=== PATIENT | male | born 1960 | race Caucasian/White ===

== ENCOUNTER 2017-04-14 17:55 | Emergency (ER) | payer BC ==
[2017-04-14 18:21] VITALS: RESP 18; BMI 25.1
--- NOTE | 2017-04-14 18:32 | ED PDOC ---
Arrival/HPI - General Chief Complaint: Cough, Cold, Congestion Time Seen by Provider: 04/14/17 18:32 Historian: Patient - History of Present Illness Narrative History of Present Illness (Text): 04/14/17 18:32 This 56 yo male with pmh HTN, presents to this ED c/o influenza like symptoms since last night. Patient stated he had fever, cough, myalgias since last night. Patient has been taking Ibuprofen for fever as needed. Patient stated girlfriend with similar symptoms. Patient denies sob, cp, hemoptysis, abdominal pain, urinary symptoms, skin rash, recent travel, dizziness, or abnormal gait. Time/Duration: Other (see hpi) Context: Home Past Medical History - Provider Review Nursing Documentation Reviewed: Yes - Infectious Disease Hx of Infectious Diseases: None - Cardiac Hx Hypertension: Yes - Psychiatric Hx Substance Use: No - Anesthesia Hx Anesthesia: No Family/Social History - Physician Review Nursing Documentation Reviewed: Yes Family/Social History: Other (noncontributory) Smoking Status: Never Smoked Hx Alcohol Use: Yes Frequency of alcohol use: Socially Hx Substance Use: No Allergies/Home Meds Allergies/Adverse Reactions: Allergies No Known Allergies Allergy (Verified 04/14/17 18:13) Home Medications: Home Meds Medication Instructions Recorded Confirmed Enalapril Maleate [Vasotec] 12.5 mg PO DAILY 04/14/17 04/14/17 Ibuprofen [Motrin Tab] 800 mg PO DAILY 04/14/17 04/14/17 Review of Systems - Review of Systems Constitutional: Fevers. absent: Fatigue, Weight Change Eyes: Normal ENT: Sore Throat Respiratory: Cough. absent: SOB, Sputum, Wheezing Cardiovascular: Normal. absent: Chest Pain Gastrointestinal: Normal. absent: Abdominal Pain, Nausea, Vomiting Genitourinary Male: Normal. absent: Dysuria, Frequency, Hematuria Musculoskeletal: Normal. absent: Back Pain, Neck Pain Skin: Normal. absent: Rash Neurological: Normal. absent: Headache, Dizziness, Focal Weakness, Gait Changes , Speech Changes, Facial Droop, Disequilibrium, Seizure Endocrine: Normal Hemo/Lymphatic: Normal Psychiatric: Normal Physical Exam Vital Signs Temp Pulse Resp BP Pulse Ox 04/14/17 18:16 99.3 F 93 H 18 127/79 95 Temperature: Afebrile Blood Pressure: Normal Pulse: Regular Respiratory Rate: Normal Appearance: Positive for: Well-Appearing, Non-Toxic, Comfortable Pain Distress: None Mental Status: Positive for: Alert and Oriented X 3 - Systems Exam Head: Present: Atraumatic, Normocephalic Pupils: Present: PERRL Extroacular Muscles: Present: EOMI Conjunctiva: Present: Normal Mouth: Present: Moist Mucous Membranes Neck: Present: Normal Range of Motion Respiratory/Chest: Present: Clear to Auscultation, Good Air Exchange. No: Respiratory Distress, Accessory Muscle Use Cardiovascular: Present: Regular Rate and Rhythm, Normal S1, S2. No: Murmurs Abdomen: Present: Normal Bowel Sounds. No: Tenderness, Distention, Peritoneal Signs, Rebound, Guarding Back: Present: Normal Inspection Upper Extremity: Present: Normal Inspection, NORMAL PULSES. No: Cyanosis, Edema Lower Extremity: Present: Normal Inspection, Normal ROM. No: Edema Neurological: Present: GCS=15, CN II-XII Intact, Speech Normal, Motor Func Grossly Intact, Normal Sensory Function, Normal Cerebellar Funct, Gait Normal, Memory Normal Skin: Present: Warm, Dry, Normal Color. No: Rashes Psychiatric: Present: Alert, Oriented x 3, Normal Insight, Normal Concentration Medical Decision Making ED Course and Treatment: 04/14/17 19:53 Re-evaluation. Patient feels better. Discussed results and plan with patient who expresses understanding. All questions answered and there is agreement with the plan to discharge home with instructions. Patient stable for discharge. Return if symptoms persist or worsen. Re-evaluation Time: 19:53 Reassessment Condition: Re-examined, Improved Disposition/Present on Arrival - Present on Arrival Any Indicators Present on Arrival: No History of DVT/PE: No History of Uncontrolled Diabetes: No Urinary Catheter: No History of Decub. Ulcer: No History Surgical Site Infection Following: None - Disposition Have Diagnosis and Disposition been Completed?: Yes Diagnosis: Influenza-like illness Disposition: HOME/ ROUTINE Disposition Time: 19:54 Patient Plan: Discharge Patient Problems: Current Active Problems Problem Status Onset Influenza-like illness Acute Condition: GOOD Discharge Instructions (ExitCare): Influenza (ED) Additional Instructions: Call private doctor for follow up visit in 1-2 days. Take medication as instructed. Drink plenty of fluids and rest. Return to emergency if symptoms worsen. Prescriptions: Azithromycin [Z-Tr] 250 mg PO DAILY #6 tab Ibuprofen [Motrin] 600 mg PO Q8 PRN #20 tab PRN Reason: Fever >100.4 F Promethazine [Phenergan Syrup] 5 ml PO Q4H PRN #120 ml PRN Reason: Cough Referrals: Rashard Goyal, [Primary Care Provider] - Follow up with primary Terry Reveles MD [Staff Provider] - Follow up with primary Forms: [employer] [facility] (Armenian), WORK NOTE
[2017-04-14 23:12] VITALS: BP 125/75; PULSE 87; TEMP 98.9; O2SAT 97
== END 2017-04-14 19:47 | disposition home or self-care (01) ==
LOC: ED 17:55
DX: J11.1 Influenza due to unidentified influenza virus with other respiratory manifestations (principal)